=== PATIENT | female | born 1980 | race African-American/Black ===

== ENCOUNTER 2020-12-19 22:46 | Emergency (ER) | payer OTHER, SELFPAY ==
--- NOTE | ~2020-12-19 | XR_ITS ---
EXAMINATION: XR chest 1V portable DATE: 12/20/2020 01:02 INDICATION: COVID positive presenting with cough TECHNIQUE: frontal view of the chest was obtained. COMPARISON: Chest radiograph dated 10/16/2016 FINDINGS: Minimal bronchial wall thickening. No focal airspace opacities, pulmonary edema, pleural effusion or pneumothorax. The cardiomediastinal silhouette is normal. Visualized bones and soft tissues are unrem arkable. IMPRESSION: 1. Normal bronchial wall thickening consistent with bronchitis. No focal airspace disease to suggest pneumonia. Reviewed, dictated and finalized at location A. IMPRESSION: 1. Normal bronchial wall thickening consistent with bronchitis. No focal airspa ce disease to suggest pneumonia.
[2020-12-19 22:50] VITALS: BP 138/67; PULSE 101; RESP 14; TEMP 37.1; O2SAT 100
[2020-12-20] MEDS: SODIUM CHLORIDE 0.9% IV 1,000 ML 999 ML IV CONT (00:12)
[2020-12-20] MEDS: ONDANSETRON INJ 4 MG/2 ML VIAL IV PUSH (00:12)
[2020-12-20] MEDS: diphenhydrAMINE HCl INJ 50 MG/ML VIAL 25 MG IV PUSH (00:12)
[2020-12-20 00:15] LABS: Basophils Percent Auto 0.5 % (0.2-1.2); Eosinophils Percent Auto 0.5 % (0-4.4); Hematocrit 43.4 % (37.0-47.0); Hemoglobin 13.8 g/dL (12.0-15.0); Immature Granulocyte Absolute 0.02 K/mm3 (0.00-0.031); Immature Granulocyte Percent A 0.5 % (0-0.5); Lymphocytes Absolute Auto 0.83 K/mm3 (0.9-3.2); Lymphocytes Percent Auto 19.7 % (18.3-44.2); Mean Corpuscular HGB Conc 31.8 g/dl (32-36); Mean Corpuscular Hemoglobin 28.8 pg (26-34); Mean Corpuscular Volume 90.4 fl (80-100); Mean Platelet Volume 10.2 fl (7.4-10.4); Monocytes Absolute Auto 0.4 K/mm3 (0.1-0.6); Neutrophils Percent Auto 69.8 % (45.5-73.1); Platelet Count Result 254 k/mm3 (150-375); Red Cell Distribution Width 12.5 % (11.5-14.5); White Blood Count 4.2 K/mm3 (4.5-10.0)
[2020-12-20 00:19] LABS: Alanine Aminotransferase 17 U/L (4-35); Albumin Level 4.3 g/dL (3.5-5.1); Alkaline Phosphatase 83 U/L (38-126); Anion Gap 9 mmol/L (8-16); Aspartate Amino Transferase 26 U/L (14-36); Bilirubin,Total 0.1 mg/dL (0.2-1.3); Blood Urea Nitrogen 10 mg/dL (7-17); Calcium 8.9 mg/dL (8.4-10.2); Carbon Dioxide 27 mmol/L (22-30); Chloride 101 mmol/L (98-107); Estimated Glomerular Filt Rate > 60; Glucose 109 mg/dL (65-110); Potassium 4.3 mmol/L (3.4-5.0); Sodium 137 mmol/L (137-145)
[2020-12-20 00:33] VITALS: O2SAT 100
[2020-12-20 00:40] LABS: EDCOVIDSCREEN Positive (Negative)
[2020-12-20 00:45] VITALS: O2SAT 100
[2020-12-20 00:47] LABS: Add Urine Microscopic? YES; Appearance Urine Cloudy (Clear); Bacteria Urine Trace /hpf; Bilirubin Urine Negative (Negative); Blood Urine 3+ (Negative); Color Urine Yellow (Yellow); Glucose Urine UA Negative (Negative); Ketones Urine Negative (Negative); Leukocyte Esterase Ur 1+ LEU/UL (Negative); Mucus Urine Rare /lpf; Nitrate Urine Negative (Negative); Protein Urine 2+ mg/dL (Negative); Specific Grav Ur 1.021 (1.001-1.035); Squamous Epithelial Cell Urine Many /hpf (Few); Urobilinogen Urine Negative mg/dL (<2.0); WBC Urine 21-30 /hpf
--- NOTE | 2020-12-20 01:00 | ED.FEVER ---
HPI - Fever General Chief Complaint: Fever Stated Complaint: fever, covid positive Time Seen by Provider: 12/19/20 23:00 Source: RN notes reviewed History of Present Illness HPI Narrative: Patient presents emergency department from home for multiple complaints. Patient states for the past several days she has been having fevers up to 101 ?F she states that with this she has had a cough that is been nonproductive but states she does normally have a cough secondary to her history of asthma she also notes a history of migraine headaches but states that she has had a headache for the past several days as well she states that she has been taking Tylenol and ibuprofen with last ibuprofen approximately 3 hours ago and last Tylenol yesterday she denies shortness of breath, abdominal pain nausea vomiting diarrhea or any other symptoms she states she has not had a Covid test and states she has not had the Covid vaccine patient states she does currently have a UTI and is on amoxicillin Related Data Allergies Allergy/AdvReac Type Severity Reaction Status Date / Time Sulfa (Sulfonamide Allergy Mild hives, Verified 12/20/20 00:12 Antibiotics) swelling ONIONS Allergy Intermediate HIVES, Uncoded 08/01/14 09:26 LIPS SWELLING Review of Systems Review of Systems: Gen.: See HPI Eyes: Denies eye pain or visual change ENT: Denies congestion Respiratory: Denies shortness of breath reports cough CV: Denies chest pain or palpitations GI: Denies abdominal pain nausea, emesis or diarrhea ports current UTI Musculoskeletal: Denies back pain or muscle pain Neuro: Reports headache Skin: Denies rash Except as documented, all other systems reviewed and negative [facility] Past Medical History Medical History (Updated 12/20/20 @ 01:54 by Jesus Alberto Salinas DO) Asthma Migraine headache Social History Social History (Updated 12/20/20 @ 01:53 by Jesus Alberto Salinas DO) Smoking status: Never smoker Exam Narrative: APPEARANCE: No acute distress, nontoxic, resting in bed EYES: PERRL HEENT: Normocephalic, atraumatic, nares patent RESPIRATORY: No respiratory distress Clear to auscultation bilaterally with no rhonchi wheezing or rales. CARDIOVASCULAR: Regular rate and rhythm without murmurs rubs or gallops. ABDOMINAL: Soft, nontender, nondistended, no rebound or guarding MUSCULOSKELETAl: Moves all extremities. No clubbing, cyanosis or edema. NEURO: Awake and alert x 4. Following commands, speech normal, no focal deficits SKIN:: Warm, dry. No rashes lesions or abrasions PSYCHIATRIC: Normal affect/mood, Course Course Emergency Course: Patient with positive Covid test in ED Patient states no improvement with medications patient did drive herself to the emergency department Discussed with patient results of workup and diagnosis. Discussed need for follow-up with primary care, proper use of medication, and reasons to return to the emergency department. Patient understands and agrees to current treatment plan Vital Signs Vital signs: Vital Signs Temperature 98.8 F 12/19/20 22:50 Pulse Rate 101 H 12/19/20 22:50 Respiratory Rate 14 12/19/20 22:50 Blood Pressure 138/67 12/19/20 22:50 Pulse Oximetry 100 12/19/20 22:50 Temperature 98.8 F 12/19/20 22:50 Pulse Rate 78 12/20/20 01:20 Respiratory Rate 17 12/20/20 01:20 Blood Pressure 114/69 12/20/20 01:20 Pulse Oximetry 98 12/20/20 01:20 MDM - Fever Lab Data Result diagrams: 12/20/20 00:02 12/20/20 00:02 Labs: Lab Results 12/20/20 12/20/20 12/20/20 Range/Units 00:02 00:02 00:04 WBC 4.2 L (4.5-10.0) K/mm3 RBC 4.80 (4.2-5.4) M/mm3 Hgb 13.8 (12.0-15.0) g/dL Hct 43.4 (37.0-47.0) % MCV 90.4 (80-100) fl MCH 28.8 (26-34) pg MCHC 31.8 L (32-36) g/dl RDW 12.5 (11.5-14.5) % Plt Count 254 (150-375) k/mm3 MPV 10.2 (7.4-10.4) fl Immature Gran % (Auto) 0.5 (0-0.5) % Neut % (Auto)
[2020-12-20 01:13] VITALS: O2SAT 100
[2020-12-20 01:20] VITALS: BP 114/69; PULSE 78; RESP 17; O2SAT 98
[2020-12-20 02:21] VITALS: BP 124/81; PULSE 80; RESP 16; O2SAT 99
== END 2020-12-20 02:30 | disposition home or self-care (01) ==
PROVIDERS: Emergency Provider Emergency Medicine
DX: U07.1 COVID-19 (principal); N39.0 Urinary tract infection, site not specified; J45.909 Unspecified asthma, uncomplicated
CPT/HCPCS: 36415; 71045; 80053; 81001; 81025; 85025; 87077; 87086; 87088; 87186; 87426; 96361; 96374; 96375; 99284; C9803; J0131; J1200; J2405; J7030

== ENCOUNTER 2024-08-20 08:35 | Outpatient (CLI) | payer OTHER, SELFPAY ==
--- NOTE | ~2024-08-20 | MM_ITS ---
EXAMINATION: MM screening [facility] HISTORY: Screening TECHNIQUE: Craniocaudal and mediolateral oblique 3-D tomosynthesis images were obtained and synthetic 2-D images were generated. CAD analysis was submitted and interpreted. COMPARISON: No prior mammogram is available for comparison at this institution. BREAST PARENCHYMAL COMPOSITION: Not dense: There are scattered areas of fibroglandular density. FINDINGS: There is no evidence of suspicious mass, calcification, or architectural distortion to sugg est malignancy in either breast. There has been no suspicious interval change. IMPRESSION: 1. No mammographic evidence of malignancy. 2. Recommend routine screening mammography in one year. BI-RADS Category 1: Negative Reviewed, dictated and finalized at location A.
--- OUTSIDE RECORDS SUMMARY | 2024-08-20 08:56 | XMS_ITS | Referral Summary ---
Author Organization [facility] Healthcare Address [address] [place] [address] Care Team Providers Care Field Handyman Name Role Phone Olivia Alvarenga NP Primary Care Provider Froylan Bazan MD [facility] [phone] Allergies Active Allergy Reactions Criticality Noted Date Comments Onion Swelling Medium 04/18/2018 Sulfa (Sulfonamide Antibiotics) Hives,Swelling Medium 06/18/2014 Sumatriptan Swelling High 10/24/2021 Throat swelling Medications diphenhydrAMINE (BENADRYL) 25 mg capsule Take 1 tablet by mouth daily as needed. Active EPINEPHrine 0.3 mg/0.3 mL auto-injection syringeIndications :Anaphylaxis 08/16/19 15 Active fexofenadine-pseud oephedrine (GALI-D) 60-120 mg per 12 hr tablet Take 1 tablet by mouth 2 (two) times a day as needed for allergies Active azelastine (ASTELIN) 137 mcg (0.1 %) nasal sprayIndications:A cute bacterial sinusitis Administer 2 sprays into each nostril 2 (two) times a day 30 mL 11/08/19 20 Active Additional Information Patient taking differently:2 spray each nostrilAs needed, Reported on 12/01/2021 fluticasone propionate (FLONASE) 50 mcg/actuation nasal sprayIndications:A cute bacterial sinusitis Administer 1 spray into each nostril daily 1 Inhaler 11/08/19 20 Active Additional Information Patient taking differently:1 spray each nostrilDaily PRN, Informant: Self, Reported on 12/01/2021 rizatriptan (MAXALT) 5 mg tabletIndications: Migraine Take 1-2 tablets (5-10 mg total) by mouth once as needed for migraine May repeat in 2 hours if unresolved. Do not exceed 30 mg in 24 hours. 9 tablet 1 11/03/19 22 Active multivitamin with minerals tablet Take 1 tablet by mouth daily Active vitamin b complex tablet Take 1 tablet by mouth daily Active albuterol (ProAir RespiClick) 90 mcg/actuation inhaler Inhale 2 puffs every 4 (four) hours as needed for wheezing or shortness of breath 1 each 1 09/01/19 24 Active azelastine (OPTIVAR) 0.05 % ophthalmic solutionIndication s:Allergic Conjunctivitis Administer 1 drop into both eyes 2 (two) times a day 6 mL 1 09/01/19 24 Active ergocalciferol (VITAMIN D) 50,000 unit capsule Take 1 capsule (50,000 Units total) by mouth once a week 12 capsule 09/04/19 24 Active meloxicam (MOBIC) 15 mg tablet Take 1 tablet (15 mg total) by mouth daily 30 tablet 12/06/19 24 025 Active Active Problems Problem Noted Date Diagnosed Date Screening for hyperlipidemia 09/01/2023 Overweight (BMI 25.0-29.9) 09/01/2023 Vitamin B 12 deficiency 09/01/2023 Routine screening for STI (sexually transmitted infection) 09/01/2023 Right wrist pain 09/01/2023 Assessment & Plan (09/01/2023 10:46 AM CDT): -chronic, present x > one year -progressively worsening -recalls may have injured in past while lifting weights, was initially swollen -pain with certain movements and grabbing items -significant numbness and tingling especially at nighttime -affects mostly ulnar aspect -left-hand dominant -types all day for work -hx of tendonitis after son was born while (>16 years ago), required steroid injection -has used ice and ibuprofen with some relief -negative phalen and tinel's signs today, positive celia test -suspect tendonitis and possible CTS given reported nocturnal paresthesias -recommend nocturnal splint -continue use of NSAIDs, take with food -referral to ortho hand / wrist Mass of right breast 11/19/2021 Overview (11/19/2021): Added automatically from request for surgery [id number] Non-recurrent acute suppurat zhang otitis media of left ear without spontaneous rupture of tympanic membrane 10/02/2018 Assessment & Plan (10/02/2018 12:11 PM CDT): Exam consistent with otitis media of the left ear Will treat with Augmentin 875/125 BID x 7 days Alert us if she develops fever or severe ear pain Conjunctivitis 10/02/2018 Assessment & Plan (10/02/2018 12:15 PM CDT): Likely both viral and allergic component due to URI symptoms and hx allergies with bilateral symptoms Supportive care Pataday eye drops for symptomatic relief Allergic asthma 10/02/2018 Assessment & Plan (11/08/2019 2:13 PM CDT): Asthma is controlled on current medications Assessment & Plan (10/02/2018 12:19 PM CDT): She reports wheezing and cough at night when experiencing allergies and/or a cold This is relieved by taking her son's inhaler Symptoms consistent with mild intermittent asthma with her trigger being allergies Will prescribe inhaler to take PRN when experiencing allergies and/or viral URI which is causing cough/wheezing She was advised to alert me if she is using this more than 2 days per week when she is otherwise healthy, which would indicate poor control Rectal bleeding 05/29/2018 Overview (05/29/2018): Added automatically from request for surgery [id number] Other constipation 05/29/2018 Overview (05/29/2018): Added automatically from request for surgery [id number] Family history of heart disease 05/04/2018 Constipation 05/04/2018 Assessment & Plan (05/04/2018 1:37 PM HEALTH PROMOTION EDUCATOR): -proceed with colonoscopy, low suspicion for malignancy -reviewed constipation prevention - increasing fiber and fluid in diet, use of stool softeners Hemorrhoids 05/04/2018 Recurrent sinusitis 04/18/2018 Assessment & Plan (11/08/2019 2:12 PM CDT): Symptoms today consistent with acute bacterial sinusitis Prescribe augmentin x 7 days Her ear pain is concerning for otitis externa and/or otitis media. Because I cannot visualize the TM at this time due to this being a virtual visit, will hold off on prescribing topical abx for potential otitis externa. She was advised to call if she develops a fever or call Monday if her ear pain has not resolved. At this time she would need to come into the office for an exam Also advised her to keep us UTD on her COVID-19 results Assessment & Plan (07/02/2018 4:32 PM CDT): -start Singulair 10 mg daily -treat acute bacterial sinusitis with doxycycline, received Augmentin two months ago -referral to ENT due to chronic recurrent nature of sinus issues -continue daily antihistamine and nasal spray -she reports different presentation of PND the past two weeks - running like a faucet , there was no rhinorrhea elicited with patient leaning forward for > 30 seconds, of course CSF leak is on ddx, but there were no neurological red flags on exam and no recent trauma, fall, lumbar puncture or other inciting event Assessment & Plan (04/18/2018 11:45 AM HEALTH PROMOTION EDUCATOR): -1st episode in the last year -needs to treat allergic rhinitis appropriately as above -reinforced with patient that antibiotics were not always needed to treat sinusitis and is most commonly an inflammatory process Non-seasonal allergic rhinitis due to pollen 05/2018 Assessment & Plan (04/18/2018 11:44 AM HEALTH PROMOTION EDUCATOR): Discussed the importance of taking daily antihistamine, nasal steroid and nasal antihistamine daily as prescribed and not p.r.n. 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 She will start trying this. Refill provided. Also discussed reducing caffeine Call if symptoms persist - can consider increasing to 100 mg per dose Assessment & Plan (07/02/2018 4:28 PM CDT): -push fluids, I suspect some degree of dehydration contributing to headaches -treatment of acute sinus infection -Imitrex prn, not to be used on more than four different occurrences per month to avoid rebound headaches Resolved Problems Problem Noted Date Diagnosed Date Resolved Date Syncope 04/23/2021 09/01/2023 Preventative health care 02/21/202010/2021 Ear itching 10/29/2018 09/01/2023 Sore throat 10/29/2018 09/01/2023 Acute upper respiratory infection 10/02/2018 09/01/2023 Assessment & Plan (10/02/2018 12:13 PM CDT): Likely viral at this point as it has only been 5 days, also with allergic component We are treating her with Augmentin for her ear infection and this will likely treat/prevent any possible sinus infection Continue allergy medication as prescribed. Add in gali for 1 week Discussed adding mucinex Alert us if symptoms do not improve in 5-7 days Change in bowel habits 05/29/201808/31 Overview (05/29/2018): Added automatically from request for surgery [id number] Hay fever 03/25/2015 04/23/2021 Immunizations Immunization Administration Dates Next Due Tdap 06/18/2014 Social History Tobacco Use Types Packs/Day Years Used Date Smoking Tobacco: Never Smokeless Tobacco: Never Tobacco Cessation:Counseling Given: Not Answered Alcohol Use Standard Drinks/Week Comments Yes 0 (1 standard drink = 0.6 oz pur e alcohol) Socially PHQ-2 Answer Date Recorded PHQ-2 Total Score 0 09/01/2023 PHQ-9 Answer Date Recorded PHQ-9 Total Score 1 09/01/2023 Personal Safety Answer Date Recorded Have you ever been in or are you currently in a harmful physical or emotional relationship or is someone making you feel afraid or unsafe? Denies 04/25/2024 Comments No Sex and Gender Information Value Date Recorded Sex Assigned at Not on file Legal Sex Female 5:40 PM HEALTH PROMOTION EDUCATOR Gender Identity Not on file Sexual Orientation Not on file Last Filed Vital Signs Vital Sign Reading Time Taken Comments Blood Pressure 143/75 04/25/2024 11:19 AM HEALTH PROMOTION EDUCATOR Pulse 78 04/25/2024 11:19 AM HEALTH PROMOTION EDUCATOR Temperature 36.5 C (97.7 F) 04/25/2024 11:19 AM HEALTH PROMOTION EDUCATOR Respiratory Rate 16 04/25/2024 11:19 AM HEALTH PROMOTION EDUCATOR Oxygen Saturation 100% 04/25/2024 11:19 AM HEALTH PROMOTION EDUCATOR Inhaled Oxygen Concentration - - Weight 72.6 kg (160 lb) 04/25/2024 11:19 AM HEALTH PROMOTION EDUCATOR Height 170.2 cm (5' 7 ) 04/25/2024 11:19 AM HEALTH PROMOTION EDUCATOR Body Mass Index 25.06 04/25/2024 11:19 AM HEALTH PROMOTION EDUCATOR Plan of Treatment Not on file Medical Devices Implanted Type Area Operations And Maintenance Supervisor Device Identifier Shelf Expiration Date Model / Serial / Lot Bard Peripheral Vascular Ultraclip Bard 17ga 10cm 2 Trigger Permanent Ultrasound [id number] - [id number] Implanted:Qty: 1 on 11/02/[address] [facility] Clip Bard Peripheral Vascular [id number] 06/14/2024 [id number] / / Procedures Procedure Name Priority Date/Time Associated Diagnosis Comments HEPATITIS C ANTIBODY Routine 09/01/2023 11:14 AM CDT Routine screening for STI (sexually transmitted infection) HM PAP SMEAR WITH HPV Routine 04/17/2017 from Last 3 Months or Most Recently Relevant to Health Maintenance Results * Hepatitis C antibody Blood (09/01/2023 11:14 AM CDT) Hep C Ab Nonreactive Nonreactive Comment: Interpretive Data Nonreactive: Antibodies to HCV not detected. Does NOT exclude the possibility of recent exposure to HCV. Equivocal: Equivocal for HCV antibodies. Supplemental molecular testing will be automatically performed to determine infection status in accordance with current CDC screening recommendations. Reactive: Positive for HCV antibodies. This may represent current or past HCV infection. Supplemental molecular testing will be automatically performed to determine current infection status in accordance with current CDC screening recommendations. Interpretive data was last revised on 2019. Testing performed by: [facility], [address] [place] [address]., [id number] Blood 09/01/2023 11:1 4 AM CDT 09/01/2023 12:50 PM CDT Olivia Alvarenga NP LAB MICROBIOLOGY - GEN ERAL ORDERABLES Edited Result - Final [facility] [id number] [facility]. Department [place] [address] * PAP SMEAR WITH HPV (04/17/2017) Pap smear Normal Historical Provider HEALTH MAINTENANCE Final Result from Last 3 Months or Most Recently Relevant to Health Maintenance Insurance [facility] CHOICE PLUS [place] [id number] [employer] [place] [employer] [place] [employer] [place] [employer] [place] Advance Directives For more information, please contact: [phone] * Full Code (Latest Code Status on File) Date Activated Date Inactivated Comments 06/25/2018 10:19 AM 06/25/2018 4:39 PM Care Teams Field Handyman Relationship Specialty Start Date End Date Olivia Alvarenga NP PCP - General Nurse Practitioner 11/16/20 Froylan Bazan MD [address] [place] [address] Referring Physician Obstetrics and Gynecology 10/14/21
--- OUTSIDE RECORDS SUMMARY | 2024-08-20 08:56 | XMS_ITS | Clinical Summary ---
Author Organization [facility] Healthcare Address [address] [place] [address] Care Team Providers Care Mothercraft Nurse Name Role Phone Olivia Alvarenga NP Primary Care Provider Froylan Bazan MD [facility] [phone] Allergies Active Allergy Reactions Criticality Noted Date [...] (11/19/2021): Added automatically from request for surgery [id number] Non-recurrent acute suppurat zhang otitis media of [...] (05/29/2018): Added automatically from request for surgery [id number] Other constipation 05/29/2018 Overview (05/29/2018): Added automatically from request for surgery [id number] Family history of heart disease 05/04/2018 Constipation 05/04/2018 Assessment & Plan (05/04/2018 1:37 PM INDUSTRIAL FURNACE FABRICATOR): -proceed with colonoscopy, low suspicion for malignancy [...] event Assessment & Plan (04/18/2018 11:45 AM INDUSTRIAL FURNACE FABRICATOR): -1st episode in the last year -needs to treat allergic rhinitis appropriately as above -reinforced with patient that antibiotics were not always needed to treat sinusitis and is most commonly an inflammatory process Non-seasonal allergic rhinitis due to pollen 05/2018 Assessment & Plan (04/18/2018 11:44 AM INDUSTRIAL FURNACE FABRICATOR): Discussed the importance of taking daily antihistamine, nasal steroid and nasal antihistamine daily as prescribed and not p.r.n. Discussed avoidance of allergens Insomnia 02/04/2016 Panic 02/04/2016 Assessment & Plan (04/18/2018 11:45 AM INDUSTRIAL FURNACE FABRICATOR): -briefly discussed anxiety due to stress in [...] Continue allergy medication as prescribed. Add in agli for 1 week Discussed adding mucinex Alert us if symptoms do not improve in 5-7 days Change in bowel habits 05/29/201808/31 Overview (05/29/2018): Added automatically from request for surgery [id number] Hay fever 03/25/2015 04/23/2021 Immunizations Immunization Administration Dates Next Due Tdap 06/18/2014 Surgical History Surgery Date Site/Laterality Comments TUBAL LIGATION 04/17/2017 - 04/16/2018 BREAST BIOPSY 11/02/2021 Right Medical History Medical History Date Comments Personal history of other di seases of the respiratory system History of acute sinusitis - (Added by TW Conv) Allergic Seasonal Asthma allergy induced GERD (gastroesophageal reflux disease) Migraines Lump of right breast Family History Medical History Relation Name Comments Heart defect Father Heart problem - (Added by TW Conv) Lung cancer Father Cancer Maternal Grandfather Diabetes Mother Family history of diabetes mellitus - (Added by TW Conv) Asthma Other Family history of asthma - (Added by TW Conv) Asthma Son 1 Family history of asthma - (Added by TW Conv) Allergies Son 2 Food allergy - (Added by TW Conv) Relation Name Status Comments Father Maternal Grandfather Mother Other Son 1 Son 2 Social History Tobacco Use Types Packs/Day Years [...] on file Legal Sex Female 5:40 PM INDUSTRIAL FURNACE FABRICATOR Gender Identity Not on file Sexual Orientation Not on file Obstetrics History Para Term AB IAB SAB Ectopic Multiple Livin g Live Births 2 2 2 Date Outcome GA Total Labor Labor/2nd/3rd Weight Sex Type Anes PTL Joanna A1 A5 Name Clin Term Term Last Filed Vital Signs Vital Sign Reading Time Taken Comments Blood Pressure 143/75 04/25/2024 11:19 AM INDUSTRIAL FURNACE FABRICATOR Pulse 78 04/25/2024 11:19 AM INDUSTRIAL FURNACE FABRICATOR Temperature 36.5 C (97.7 F) 04/25/2024 11:19 AM INDUSTRIAL FURNACE FABRICATOR Respiratory Rate 16 04/25/2024 11:19 AM INDUSTRIAL FURNACE FABRICATOR Oxygen Saturation 100% 04/25/2024 11:19 AM INDUSTRIAL FURNACE FABRICATOR Inhaled Oxygen Concentration - - Weight 72.6 kg (160 lb) 04/25/2024 11:19 AM INDUSTRIAL FURNACE FABRICATOR Height 170.2 cm (5' 7 ) 04/25/2024 11:19 AM INDUSTRIAL FURNACE FABRICATOR Body Mass Index 25.06 04/25/2024 11:19 AM INDUSTRIAL FURNACE FABRICATOR Plan of Treatment Health Maintenance Due Date Last Done Comments Breast Cancer Screening-Mammogram 1980 Varicella Vaccines (1 of 2 - 13+ 2-dose series) 1993 Hepatitis B Screening 1998 Pneumococcal vaccine <65 (1 of 2 - PCV) 07/19/1999 Cervical Cancer Screening 04/17/20182017, 05/18/2012 Regular Well Visit/Exam 18-64 02/20/2021 02/21/2020 DTaP/Tdap/Td Vaccine (2 - Td or Tdap) 06/18/2024 06/18/2014 Depression Screening 08/31/2024 09/01/2023, 02/21/2020, 05/04/2018 Influenza Vaccine (Season Ended) 2024 Hepatitis C Screening Completed 09/01/2023 HPV Vaccines Aged Out No longer eligi ble based on patient's age to complete this topic Medical Devices Implanted Type Area Darklight Inspector Device Identifier Shelf Expiration Date Model / Serial / Lot Bard Peripheral Vascular Ultraclip Bard 17ga 10cm 2 Trigger Permanent Ultrasound [id number] - [id number] Implanted:Qty: 1 on 11/02/2021 at [facility] Clip Bard Peripheral Vascular [id number] 06/14/2024 [id number] / / Procedures Procedure Name Priority Date/Time Associated Diagnosis Comments HEPATITIS C ANTIBODY Routine 09/01/2023 11:14 AM CDT Routine screening for STI (sexually transmitted infection) PAP SMEAR WITH HPV Routine 04/17/2017 from [...] last revised on 2019. Testing performed by: [facility], [facility] [facility], [place]., [address] Blood 09/01/2023 11:1 4 AM CDT 09/01/2023 12:50 PM CDT Olivia Alvarenga NP LAB MICROBIOLOGY - GEN ERAL ORDERABLES Edited Result - Final [id number] [id number] [facility]. [place] [address] * PAP SMEAR WITH HPV (04/17/2017) Pap smear Normal us Historical Provider MD HEALTH MAINTENANCE Final Result from Last 3 Months or Most Recently Relevant to Health Maintenance Insurance [facility] CHOICE PLUS [employer] RU[employer] CO [employer] RU[employer] INS CO [employer] INS [place] Advance Directives For more information, please contact: [phone] * Full Code (Latest Code Status on File) Date Activated Date Inactivated Comments 06/25/2018 10:19 AM 06/25/2018 4:39 PM Care Teams Mothercraft Nurse Relationship Specialty Start Date End Date Olivia Alvarenga NP PCP - General Nurse Practitioner 11/16/20 Froylan Bazan MD [address] [place] [address] Referring Physician Obstetrics and Gynecology 10/14/21
== END 2024-08-20 08:36 | disposition home or self-care (01) ==
PROVIDERS: Visit Provider Obstetrics & Gynecology
DX: Z12.31 Encounter for screening mammogram for malignant neoplasm of breast (principal)
CPT/HCPCS: 77063; 77067